=== PATIENT | male | born 1970 | race Caucasian/White ===

== ENCOUNTER 2018-02-21 10:50 | Emergency (ER) | payer SELFPAY ==
--- NOTE | 2018-02-21 11:14 | ED.PDOC ---
History of Present Illness - General Chief Complaint: Upper Extremity Injury Time Seen by Provider: 02/21/18 11:12 Source: patient, family Exam Limitations: no limitations - History of Present Illness Initial Comments: TWO DAYS AGO THE THE TRUNK LID CAUGHT HIS RIGHT HAND. NOW THERE IS PAIN AND SWELLINF THE THE DORSAL ASPECT OF THE LEFT HAND. Occurred: other - TWO DAYS AGO Pain - Upper Extremity: moderate: Hand, right Method of Injury: direct blow Improving Factors: nothing Worsening Factors: nothing Allergies/Adverse Reactions: Allergies Aspirin Adverse Reaction (Verified 04/06/15 20:37) Tramadol Adverse Reaction (Verified 04/06/15 20:37) Home Medications: Ambulatory Orders Amlodipine Besylate [Norvasc] 10 mg PO DAILY #30 tab 06/08/15 Lorazepam 10/20/15 Zoloft 50 DAILY 10/20/15 Acetamin W/Cod #3 Tab [Tylenol #3 Tab] 1 ea PO Q4-6H PRN #20 tab 12/24/15 Diclofenac Sodium [Diclofenac Sodium Dr] 50 mg PO Q12HR #20 tab 02/21/18 Review of Systems - Review of Systems Constitutional: States: no symptoms reported EENTM: States: no symptoms reported Respiratory: States: no symptoms reported Cardiology: States: no symptoms reported Gastrointestinal/Abdominal: States: no symptoms reported Genitourinary: States: no symptoms reported Musculoskeletal: States: other - RIGHT HAND PAIN AND SWELLING. Skin: States: no symptoms reported Neurological: States: no symptoms reported Endocrine: States: no symptoms reported Past Medical History (General) - Patient Medical History Hx Seizures: No Hx Stroke: No Hx Dementia: No Hx Asthma: No Hx of COPD: No Hx Cardiac Disorders: No Hx Congestive Heart Failure: No Hx Pacemaker: No Hx Hypertension: Yes Hx Thyroid Disease: No Hx Diabetes: No Hx Gastroesophageal Reflux: No Hx Renal Disease: No Hx Cancer: No Hx of HIV: No Hx Hepatitis C: No Hx MRSA: No - Vaccination History Hx Tetanus, Diphtheria Vaccination: Yes Hx Influenza Vaccination: No Hx Pneumococcal Vaccination: No - Social History Hx Tobacco Use: Yes Hx Chewing Tobacco Use: No Hx Alcohol Use: No Hx Substance Use: No Hx Substance Use Treatment: No Hx Depression: Yes - 50mg zoloft Hx Physical Abuse: No Hx Emotional Abuse: No Hx Suspected Abuse: No - Female History Patient : Yes Family Medical History - Family History Mother Family History: Unknown Living Status: Still Living Physical Exam - Physical Exam General Appearance: Alert, Comfortable Eyes, Ears, Nose, Throat Exam: PERRL/EOMI, normal ENT inspection, pharynx normal Neck: non-tender, full range of motion, supple, normal inspection Cardiovascular/Respiratory: regular rate, rhythm, no M/R/G, normal peripheral pulses, no JVD, normal breath sounds, no respiratory distress Abdominal Exam: non-tender, no organomegaly, no hernia Back Exam: normal inspection, no CVA tenderness, no vertebral tenderness Shoulder Exam: normal inspection Elbow/Forearm Exam: normal inspection Wrist Exam: normal inspection Hand Exam: deformity, soft tissue tenderness, swelling Neuro/Tendon: normal sensation, normal motor functions Mental Status: alert, oriented x 3 Skin Exam: normal color Progress - Results/Orders Results/Orders: IMAGING IS RESULTED: FRACTURE OF THE PROXIMAL RIGHT 5TH METACARPAL, ANGULATED, MINIMALLY DISPLACED AND CLOSED. Departure - Departure Clinical Impression: Boxer's metacarpal fracture, neck, closed Qualifiers: Encounter type: initial encounter Metacarpal bone: fifth Fracture alignment: displaced Laterality: right Qualified Code(s): S62.336A - Displaced fracture of neck of fifth metacarpal bone, right hand, initial encounter for closed fracture Time of Disposition: 11:52 Disposition: Discharge to Home or Self Care Condition: Good Departure Forms: ED Discharge - Pt. Copy, Patient Portal Self Enrollment Instructions: DI for Arm Pain, DI for Boxer's Fracture Referrals: ANTONIA SANTOS,HOSSEIN Ahumada [Primary Care Provider] - 1-2 Weeks Prescriptions: Diclofenac Sodium [Diclofenac Sodium Dr] 50 mg PO Q12HR #20 tab Home Medications: Ambulatory Orders Amlodipine Besylate [Norvasc] 10 mg PO DAILY #30 tab 06/08/15 Lorazepam 10/20/15 Zoloft 50 DAILY 10/20/15 Acetamin W/Cod #3 Tab [Tylenol #3 Tab] 1 ea PO Q4-6H PRN #20 tab 12/24/15 Diclofenac Sodium [Diclofenac Sodium Dr] 50 mg PO Q12HR #20 tab 02/21/18
--- NOTE | 2018-02-21 11:36 | RAD ---
EXAM DESCRIPTION: Hand,Right 3 Views CLINICAL HISTORY: 47 years Male, TRUNK OF CAR CLOSED ON IT: PAIN AND EDEMA COMPARISON: None. FINDINGS: Three views of the right hand show a moderately displaced and anteriorly angulated fracture involving the right fifth metacarpal neck without extension to the fifth MCP joint surface. No additional acute fracture or malalignment is identified. There is no radiopaque foreign body or soft tissue gas. IMPRESSION: Displaced and angulated right fifth metacarpal neck fracture without intra-articular extension. Electronically signed by: Luis Armando Sequeira MD 02/21/2018 11:34 AM CDT
[2018-02-21 11:58] VITALS: BP 150/88; TEMP 98.1; O2SAT 96
== END 2018-02-21 12:12 | disposition home or self-care (01) ==
LOC: ER 10:50
DX: S62.336A Displaced fracture of neck of fifth metacarpal bone, right hand, initial encounter for closed fracture (principal); I10 Essential (primary) hypertension; Z87.891 Personal history of nicotine dependence; W23.0XXA Caught, crushed, jammed, or pinched between moving objects, initial encounter

== ENCOUNTER 2019-04-07 09:53 | Emergency (ER) | payer SELFPAY ==
[2019-04-07 10:10] VITALS: O2SAT 96
[2019-04-07] MEDS ORDERED: TETANUS,DIPHTHERIA,PERTUSSIS 1 EA SYG IM ONE (10:12)
[2019-04-07] MEDS ORDERED: NEOMYCIN-BACITRACIN-POLYMYXIN 0.9 GM UD TOP ONE (10:21)
--- NOTE | 2019-04-07 10:29 | ED.PDOC ---
History of Present Illness - General Chief Complaint: Lower Extremity Injury Stated Complaint: stepped on vinny nail,need Tetanus Time Seen by Provider: 04/07/19 09:56 Source: patient Exam Limitations: no limitations - History of Present Illness Initial Comments: Pari Dsouza 49 y/o male cme to ER after left foot stepped on vinny nail while mowing lawn.Stated had shoes on.Some mild pain after incident on weigh bearing. Occurred: just prior to arrival Pain - Lower Extremity: moderate: Left Foot Method of Injury: other - see hpi Improving Factors: nothing Worsening Factors: nothing Associated Symptoms: see hpi Allergies/Adverse Reactions: Allergies Tramadol Adverse Reaction (Verified 04/06/15 20:37) Home Medications: Ambulatory Orders Amlodipine Besylate [Norvasc] 10 mg PO DAILY #30 tab 06/08/15 Clonazepam 2 mg PO BID 02/21/19 Amoxicillin [Amoxil] 1,000 mg PO BID 7 Days #28 cap 04/07/19 Review of Systems - Review of Systems Musculoskeletal: States: see HPI Skin: States: see HPI, other - punctured wound left foot All other Systems: Reviewed and Negative, No Change from Baseline Past Medical History (General) - Patient Medical History Hx Seizures: No Hx Stroke: No Hx Dementia: No Hx Asthma: No Hx of COPD: No Hx Cardiac Disorders: No Hx Congestive Heart Failure: No Hx Pacemaker: No Hx Hypertension: Yes Hx Thyroid Disease: No Hx Diabetes: No Hx Gastroesophageal Reflux: No Hx Renal Disease: No Hx Cancer: No Hx of HIV: No Hx Hepatitis C: No Hx MRSA: No Surgical History: no surgical history - Vaccination History Hx Tetanus, Diphtheria Vaccination: - unknown Hx Influenza Vaccination: No Hx Pneumococcal Vaccination: No - Social History Hx Tobacco Use: Yes Hx Chewing Tobacco Use: No Hx Alcohol Use: No Hx Substance Use: No Hx Substance Use Treatment: No Hx Depression: Yes - 50mg zoloft Hx Physical Abuse: No Hx Emotional Abuse: No Hx Suspected Abuse: No - Female History Patient : Yes Family Medical History - Family History Mother Family History: Unknown Living Status: Still Living Hx Family Hypertension: Yes - mom Hx Family Cancer: Yes - grandma-breast Physical Exam - Physical Exam General Appearance: Alert, Comfortable Eyes, Ears, Nose, Throat: normal ENT inspection Neck: normal inspection Cardiovascular/Respiratory: regular rate, rhythm, normal peripheral pulses, normal breath sounds Gastrointestinal/Abdominal: non-tender Back: normal inspection Leg: normal inspection, non-tender, no evidence of injury, normal ROM Knee: normal inspection, non-tender, no evidence of injury, normal ROM Ankle: normal inspection, non-tender, no evidence of injury Foot: non-tender, normal ROM, other - punctured wound plantar area left foot non bleeding Neuro/Tendon: normal sensation, normal motor functions, normal tendon functions, responds to pain Mental Status: alert, oriented x 3 Skin: normal color, warm/dry Progress - Progress Progress: 04/07/19 10:32 Vital Signs - 24 hr 04/07/19 10:06 Temperature 96.4 F L Pulse Rate [ 104 H Right Brachial] Respiratory 20 Rate Blood Pressure 130/95 [Right Arm] O2 Sat by Pulse 96 Oximetry Departure - Departure Clinical Impression: Puncture wound of foot excluding toes without complication Qualifiers: Encounter type: initial encounter Laterality: left Qualified Code(s): S91.332A - Puncture wound without foreign body, left foot, initial encounter Contact with sharp object as cause of accidental injury Qualifiers: Encounter type: initial encounter Qualified Code(s): W26.9XXA - Contact with unspecified sharp object(s), initial encounter Time of Disposition: 10:34 Disposition: Discharge to Home or Self Care Departure Forms: ED Discharge - Pt. Copy, Patient Portal Self Enrollment Instructions: Wound Care (DC) Referrals: UNKNOWN,PHYSICIAN [Primary Care Provider] - 1-2 Weeks Prescriptions: Amoxicillin [Amoxil] 1,000 mg PO BID 7 Days #28 cap Home Medications: Ambulatory Orders Amlodipine Besylate [Norvasc] 10 mg PO DAILY #30 tab 06/08/15 Clonazepam 2 mg PO BID 02/21/19 Amoxicillin [Amoxil] 1,000 mg PO BID 7 Days #28 cap 04/07/19 Additional Instructions: Return to ER as needed;Follow up with primary Md for recheck 13 April 2019 as needed
[2019-04-07 10:45] VITALS: BP 130/90; TEMP 96.1
== END 2019-04-07 10:45 | disposition home or self-care (01) ==
LOC: ER 09:53
DX: S91.332A Puncture wound without foreign body, left foot, initial encounter (principal); F32.9 Major depressive disorder, single episode, unspecified; I10 Essential (primary) hypertension; W45.0XXA Nail entering through skin, initial encounter; Z23 Encounter for immunization; Z79.899 Other long term (current) drug therapy; Z87.891 Personal history of nicotine dependence; Z88.5 Allergy status to narcotic agent; Y93.H2 Activity, gardening and landscaping; Y92.9 Unspecified place or not applicable

== ENCOUNTER 2019-12-27 00:04 | Emergency (ER) | payer SELFPAY ==
[2019-12-27] MEDS ORDERED: ALUM & MAG HYDROX-SIMETHICONE 30 ML, LIDOCAINE VISCOUS 2% 15 ML PO ONE ×2 (00:20)
[2019-12-27] MEDS ORDERED: ONDANSETRON ODT 8 MG TAB SL ONE (00:20)
[2019-12-27] MEDS ORDERED: LIDOCAINE HCL 2% (MOUTH-THROAT) 15 ML UD ONE (00:25)
[2019-12-27] MEDS ORDERED: ALUM & MAG HYDROX-SIMETHICONE 30 ML UD ONE (00:26)
[2019-12-27] MEDS ORDERED: ENOXAPARIN SODIUM 80 MG/0.8 ML SYG SUBCU ONE (00:27)
[2019-12-27 00:32] VITALS: TEMP 97.7
--- NOTE | 2019-12-27 00:47 | RAD ---
CHEST, ONE VIEW XR CLINICAL HISTORY: Chest pain and vomiting. COMPARISON: 02/21/2019 TECHNIQUE: AP Chest. FINDINGS: Limited exam due to marked apical lordotic angle of imaging. [Normal cardiac size. Pulmonary vasculature appears normal. Normal cardiomediastinal contours. Lungs are clear. Pleural spaces are clear. Unremarkable soft tissues and bones.] IMPRESSION: 1. No acute chest disease. Electronically signed by: Bibi Stern DO 12/27/2019 12:46 AM CDT
--- NOTE | 2019-12-27 01:00 | CT ---
PROCEDURE: CT Head CLINICAL HISTORY: 49 years Male [place] TECHNIQUE: Contiguous axial CT images obtained through the brain without IV contrast. Coronal and sagittal reformats also provided. This CT exam was performed according to our departmental dose-optimization program, which includes one or more of the following dose reduction techniques: automated exposure control, adjustment of the mA and/or kV according to patient size, and/or use of iterative reconstruction technique. COMPARISON: No prior exams provided for comparison. FINDINGS: There is no intracranial hemorrhage, extra-axial collection, or acute transcortical infarction. The ventricles are normal in size and contour without mass-effect or midline shift. No acute fracture or aggressive osseous lesion. Mild bilateral ethmoid and right maxillary sinusitis. The mastoid air cells are clear. IMPRESSION: Mild paranasal sinusitis. No other acute findings. Electronically signed by: Yesica Cm MD 12/27/2019 12:59 AM CDT
[2019-12-27] MEDS ORDERED: NITROGLYCERIN 0.4 MG 25 EA TAB SL ONE ×2 (01:32)
[2019-12-27 02:03] VITALS: BP 126/77; O2SAT 97
--- NOTE | 2019-12-27 02:10 | ED.PDOC ---
History of Present Illness - General Chief Complaint: Chest Pain/[place] Stated Complaint: chest pain Time Seen by Provider: 12/27/19 00:11 Source: patient Exam Limitations: no limitations - History of Present Illness Initial Comments: The patient is a 49 year-old male presenting to the emergency room after having had an episode of waking up abruptly with some chest pain followed immediately by nausea vomiting and diarrhea and a headache. The patient reports that the last time he had this constellation of symptoms he had a heart attack back in 2007. He does not currently take any cardiac medications only blood pressure medications and an anxiety pill. He does still have something of a headache he also has still has something of chest discomfort and discomfort to his left upper extremity. Most of the pain in his chest is reproducible with palpation just below the nipple. No shortness of breath. He does have some pain with taking a deep breath. Chest pain did improve significantly with nitroglycerin. The patient reports that he is allergic to aspirin. Timing/Duration: 1/2 hour Severity: severe Improving Factors: medication Worsening Factors: nothing Associated Symptoms: chest pain Allergies/Adverse Reactions: Allergies Tramadol Adverse Reaction (Verified 04/06/15 20:37) Home Medications: Ambulatory Orders Amlodipine Besylate [Norvasc] 10 mg PO DAILY #30 tab 06/08/15 Clonazepam 2 mg PO BID 02/21/19 Amoxicillin [Amoxil] 1,000 mg PO BID 7 Days #28 cap 04/07/19 Nitroglycerin [Nitrostat] 0.4 mg SL Q5MIN PRN #1 bottle 12/27/19 Review of Systems - Review of Systems Constitutional: States: no symptoms reported EENTM: States: no symptoms reported Respiratory: States: no symptoms reported Cardiology: States: chest pain Gastrointestinal/Abdominal: States: diarrhea, nausea Genitourinary: States: no symptoms reported Musculoskeletal: States: see HPI Skin: States: no symptoms reported Neurological: States: no symptoms reported Endocrine: States: no symptoms reported All other Systems: No Change from Baseline Past Medical History (General) - Patient Medical History Hx Seizures: No Hx Stroke: No Hx Dementia: No Hx Asthma: No Hx of COPD: No Hx Cardiac Disorders: Yes - hx of [place] Hx Congestive Heart Failure: No Hx Pacemaker: No Hx Hypertension: Yes Hx Thyroid Disease: No Hx Diabetes: No Hx Gastroesophageal Reflux: Yes Hx Renal Disease: No Hx Cancer: No Hx of HIV: No Hx Hepatitis C: No Hx MRSA: No Surgical History: other - Vaccination History Hx Tetanus, Diphtheria Vaccination: Yes Hx Influenza Vaccination: Yes Hx Pneumococcal Vaccination: No Immunizations Up to Date: Yes - Social History Hx Tobacco Use: Yes Hx Chewing Tobacco Use: No Hx Alcohol Use: Yes Hx Substance Use: No Hx Substance Use Treatment: No Hx Depression: Yes Feels Threatened In Home Enviroment: No Feels Threatened In a Relationship: No Hx Physical Abuse: No Hx Emotional Abuse: No Hx Suspected Abuse: No - Activities of Daily Living Hospice Agency (if applicable):: None - Female History Patient is a Female of Child Bearing Age (10 -59 yrs old): No Patient : Yes Family Medical History - Family History Mother Family History: Unknown Living Status: Still Living Hx Family Hypertension: Yes - mom Hx Family Cancer: Yes - grandma-breast Physical Exam - Physical Exam General Appearance: Alert, Anxious, No apparent distress Eye Exam: bilateral normal Ears, Nose, Throat: hearing grossly normal, normal ENT inspection Neck: full range of motion, supple Respiratory: lungs clear, normal breath sounds, no respiratory distress, no accessory muscle use, other - Chest wall tenderness as above Cardiovascular/Chest: normal peripheral pulses, regular rate, rhythm, no edema Peripheral Pulses: radial,right: 2+, radial,left: 2+ Gastrointestinal/Abdominal: non tender, soft Rectal Exam: deferred Back Exam: no CVA tenderness, no vertebral tenderness Extremity: normal range of motion, non-tender, normal inspection, no pedal edema Neurologic: family living educator II-XII nml as tested, alert, normal mood/affect - Highly anxious, oriented x 3 Skin Exam: normal color Comments: Vital Signs - 24 hr 12/27/19 12/27/19 12/27/19 00:22 00:26 00:35 Temperature 97.7 F Pulse Rate [ 74 74 pulse ox] Respiratory 18 Rate Blood Pressure 127/75 [Left Arm] O2 Sat by Pulse 97 97 Oximetry 12/27/19 12/27/19 01:03 02:00 Temperature Pulse Rate [ 72 82 pulse ox] Respiratory 18 16 Rate Blood Pressure 118/74 126/77 [Left Arm] O2 Sat by Pulse 94 L 97 Oximetry Progress - Progress Progress: 12/27/19 02:11 The patient is a 49-year-old male presenting with a constellation of symptoms that is concerning for a repeat of symptoms that he experienced with his previous myocardial infarction. First set of cardiac enzymes are negative and the patient is feeling significantly better after the nitroglycerin. The patient is leaving AGAINST MEDICAL ADVICE. EKG and chest x-ray are at least reassuring. Vital signs been reassuring. The patient is to follow-up as soon as possible with his primary care doctor to get set up with a new life insurance actuary for stress testing. In the meantime the patient is going to be written for nitroglycerin for as needed use. ER warnings are given. annie ruffin [phone] - Results/Orders Results/Orders: 12/27/19 00:19 Telemetry .CONTINUOUS 12/27/19 00:30 EKG STAT shows normal sinus rhythm at 73 bpm. Normal axis. Normal R wave progression. No ST segment or T wave changes indicative of acute ischemia. QT interval is within normal limits. Chest x-ray shows no acute pathology. 12/27/19 09:00 Oxygen Daily Laboratory Results - last 24 hr 12/27/19 12/27/19 12/27/19 00:20 00:20 00:20 WBC 10.5 RBC 4.79 Hgb 14.4 Hct 41.2 L MCV 86.0 MCH 30.1 MCHC 35.0 RDW 13.9 Plt Count 242 MPV 9.1 Absolute Neuts (auto) 4.10 Absolute Lymphs (auto) 5.10 H Absolute Monos (auto) 0.70 Absolute Eos (auto) 0.60 H Absolute Basos (auto) 0.10 Neutrophils % 39.0 L Lymphocytes % 48.0 Monocytes % 6.8 Eosinophils % 5.3 H Basophils % 0.9 D-Dimer, Quantitative < 100 L Sodium 138 Potassium 3.4 L Chloride 105 Carbon Dioxide 26 Anion Gap 10.4 L BUN 13 Creatinine 0.87 BUN/Creatinine Ratio 14.9 Random Glucose 104 Serum Osmolality 276.1 Calcium 9.1 Magnesium 2.3 Total Bilirubin 0.4 AST 22 ALT 25 Alkaline Phosphatase 80 Creatine Kinase 146 CK-MB (CK-2) 2.4 CK-MB (CK-2) % Not Reportable Troponin I < 0.02 B-Natriuretic Peptide 22.1 Serum Total Protein 6.7 Albumin 3.8 Globulin 2.9 Albumin/Globulin Ratio 1.3 Urine Color Urine Appearance Urine pH Ur Specific [place] Urine Protein Urine Glucose (UA) Urine Ketones Urine Blood Urine Nitrite Urine Bilirubin Urine Urobilinogen Ur Leukocyte Esterase Urine RBC Urine WBC Ur Epithelial Cells Urine Bacteria Urine Opiates Screen Urine Barbiturates Ur Phencyclidine Scrn U Amphetamin/Meth Scrn U Benzodiazepines Scrn U Cocaine Metab Screen U Cannabinoids Screen 12/27/19 12/27/19 00:23 00:23 WBC RBC Hgb Hct MCV MCH MCHC RDW Plt Count MPV Absolute Neuts (auto) Absolute Lymphs (auto) Absolute Monos (auto) Absolute Eos (auto) Absolute Basos (auto) Neutrophils % Lymphocytes % Monocytes % Eosinophils % Basophils % D-Dimer, Quantitative Sodium Potassium Chloride Carbon Dioxide Anion Gap BUN Creatinine BUN/Creatinine Ratio Random Glucose Serum Osmolality Calcium Magnesium Total Bilirubin AST ALT Alkaline Phosphatase Creatine Kinase CK-MB (CK-2) CK-MB (CK-2) % Troponin I B-Natriuretic Peptide Serum Total Protein Albumin Globulin Albumin/Globulin Ratio Urine Color Yellow Urine Appearance Clear Urine pH 6.0 Ur Specific [place] 1.025 Urine Protein Negative Urine Glucose (UA) Negative Urine Ketones Negative Urine Blood Negative Urine Nitrite Negative Urine Bilirubin Negative Urine Urobilinogen 0.2 Ur Leukocyte Esterase Negative Urine RBC 0 Urine WBC 0 Ur Epithelial Cells 0 Urine Bacteria 0 Urine Opiates Screen Positive H Urine Barbiturates Negative Ur Phencyclidine Scrn Negative U Amphetamin/Meth Scrn Negative U Benzodiazepines Scrn Positive H U Cocaine Metab Screen Negative U Cannabinoids Screen Negative Head CT appears benign for acute pathology. Departure - Departure Clinical Impression: Anxiety Chest pain Qualifiers: Chest pain type: unspecified Qualified Code(s): R07.9 - Chest pain, unspecified Disposition: Discharge to Home or Self Care Condition: Fair Departure Forms: ED Discharge - Pt. Copy, Patient Portal Self Enrollment Diet: low salt diet Activity: increase activity as tolerated Referrals: DAWOOD BARNARD IV, AIRPLANE FLIGHT ATTENDANT SUPERVISOR [Primary Care Provider] - 1-2 Weeks Prescriptions: Nitroglycerin [Nitrostat] 0.4 mg SL Q5MIN PRN #1 bottle PRN Reason: Chest Pain Home Medications: Ambulatory Orders Amlodipine Besylate [Norvasc] 10 mg PO DAILY #30 tab 06/08/15 Clonazepam 2 mg PO BID 02/21/19 Amoxicillin [Amoxil] 1,000 mg PO BID 7 Days #28 cap 04/07/19 Nitroglycerin [Nitrostat] 0.4 mg SL Q5MIN PRN #1 bottle 03/22/20 Additional Instructions: The patient is a 49-year-old male presenting with a constellation of symptoms that is concerning for a repeat of symptoms that he experienced with his previous myocardial infarction. First set of cardiac enzymes are negative and the patient is feeling significantly better after the nitroglycerin. The patient is leaving AGAINST MEDICAL ADVICE. EKG and chest x-ray are at least reassuring. Vital signs been reassuring. The patient is to follow-up as soon as possible with his primary care doctor to get set up with a new life insurance actuary for stress testing. In the meantime the patient is going to be written for nitroglycerin for as needed use. ER warnings are given.
== END 2019-12-27 02:16 | disposition home or self-care (01) ==
LOC: ER 00:04
DX: R07.9 Chest pain, unspecified (principal); F41.9 Anxiety disorder, unspecified; R11.2 Nausea with vomiting, unspecified; R19.7 Diarrhea, unspecified; R51 Headache; I25.2 Old myocardial infarction; I10 Essential (primary) hypertension; K21.9 Gastro-esophageal reflux disease without esophagitis; F32.9 Major depressive disorder, single episode, unspecified; Z53.29 Procedure and treatment not carried out because of patient's decision for other reasons; Z88.5 Allergy status to narcotic agent; Z79.899 Other long term (current) drug therapy; Z87.891 Personal history of nicotine dependence
CPT/HCPCS: 70450; 71045; 80053; 80307; 81001; 82550; 82553; 83735; 83880; 84484; 85025; 85379; 87502; 93005; J1650

== ENCOUNTER → 2020-10-12 | Outpatient (CLI) | payer SELFPAY | LOC: LAB.O 12:41 | PROVIDERS: ATTEND Orthopaedic Surgery | DX: L08.89 Other specified local infections of the skin and subcutaneous tissue (principal) ==

== ENCOUNTER → 2020-10-12 | Outpatient (CLI) | payer SELFPAY ==
--- NOTE | 2020-10-12 15:17 | RAD ---
EXAM: Hand,Right 3 Views CLINICAL HISTORY: pain in right hand. TECHNIQUE: AP, lateral and oblique images. COMPARISON STUDY: February 21, 2018 FINDINGS: The previously identified right fifth metacarpal fracture has healed/fused. There is an old ulnar styloid fracture. No acute fractures identified. There is no dislocation. There are no significant arthritic changes. The lateral image shows soft tissue swelling along the dorsal aspect of the fourth digit without a radiopaque foreign object or subcutaneous air. IMPRESSION: 1. Soft tissue swelling of the fourth digit with no foreign object or underlying osseous abnormality. 2. Old fifth metacarpal fracture and old ulnar styloid fracture. Electronically signed by: Chao Daley MD 10/12/2020 3:15 PM [facility]
== END ==
LOC: RAD 11:26
PROVIDERS: ATTEND Orthopaedic Surgery
DX: L08.89 Other specified local infections of the skin and subcutaneous tissue (principal)